=== PATIENT | female | born 1930 | race Caucasian/White ===

== ENCOUNTER 2018-09-25 21:15 | Inpatient (IN) | payer MEDICARE, MEDICAID ==
--- NOTE | 2018-09-25 22:00 | ED Physician Chart ---
ED Chief Complaint/HPI - Patient Information Date Seen:: 09/25/18 Time Seen:: 21:56 Chief Complaint:: abd pain History of Present Illness:: 88 yr old female here with no bm fir 3 days with costipation and no bm no vomiting or diiarhea no blood Allergies:: Allergies Allergy/AdvReac Type Severity Reaction Status Date / Time No Known Allergies Allergy Verified 09/25/18 21:31 Vitals:: Vital Signs - 8 hr 09/25/18 21:15 Temp 99.0 F HR 86 RR 18 BP 145/78 O2 Sat % 94 ED Review of Systems - Review of Systems General/Constitutional: No fever Skin: No skin lesions Head: No headache Eyes: No loss of vision ENT: No earache Neck: No neck pain Cardio Vascular: No palpitations Pulmonary: No SOB GI: No vomiting, Diarrhea, No diarrhea G/U: No dysuria 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 Is Septic Shock (SBP<90, OR Lactate>4 mmol\L) present?: No - <6hrs of presentation: Vital Signs: Vital Signs - 8 hr 09/25/18 21:15 Temp 99.0 F HR 86 RR 18 BP 145/78 O2 Sat % 94 ED Reassessment (Disposition) - Reassessment Reassessment:: constipation abd pain - Diagnosis Diagnosis:: as above - Patient Disposition Discharge/Transfer:: Home Transport Method:: ACLS
[2018-09-25 22:14] LABS: % BASOPHILS 0.1 % (0.0-2.0); % EOSINOPHILS 4.7 % (0.0-5.0); % MONOCYTES 4.6 % (2.0-10.0); % NEUTROPHILS 81.6 % (40.0-80.0); EOSINOPHILE ABSOLUTE 0.5 Th/cmm (0.1-0.4); HEMATOCRIT 42.2 % (41.0-60); HEMOGLOBIN 13.7 gm/dL (12-16); MEAN CELL VOLUME 86.3 fl (81-100); MEAN CORPUSCULAR HEMOGLOBIN 28.1 pg (27.0-31.0); MEAN CORPUSCULAR HGB CONC 32.6 pg (28.0-36.0); MONOCYTE ABSOLUTE 0.5 Th/cmm (0.3-1.0); PLATELET COUNT 177 Th/cmm (150-400); RED BLOOD COUNT 4.89 Mil/cmm (3.80-5.20); RED CELL DISTRIBUTION WIDTH 14.3 % (11.5-20.0)
[2018-09-25 22:30] LABS: ALB/GLOB RATIO 1.5 (1.0-1.8); ALBUMIN 4.5 gm/dL (3.7-5.3); ALKALINE PHOSPHATASE 73 U/L (34-104); ANION GAP 12.3 (7.0-16.0); BILIRUBIN,TOTAL 0.7 mg/dL (0.3-1.0); BUN - UREA NITROGEN 52 mg/dL (7-25); CALCIUM SERUM 10.5 mg/dL (8.6-10.3); CARBON DIOXIDE 30.4 mEq/L (21.0-31.0); CHLORIDE 101 mEq/L (98-107); CREATININE - SERUM 1.2 mg/dL (0.6-1.2); GLUCOSE 150 mg/dL (70-105); POTASSIUM SERUM 3.7 mEq/L (3.5-5.1); SGOT 22 U/L (13-39); SGPT/ALT 14 U/L (7-52); SODIUM SERUM 140 mEq/L (136-145); TOTAL PROTEIN,SERUM 7.6 gm/dL (6.0-8.3)
[2018-09-26 00:28] LABS: URINE SOURCE CLEAN C
[2018-09-26 00:30] LABS: URINE BILIRUBIN NEGATIVE (NEGATIVE); URINE BLOOD NEGATIVE (NEGATIVE); URINE GLUCOSE (UA) NEGATIVE (NEGATIVE); URINE KETONE NEGATIVE (NEGATIVE); URINE LEUKOCYTE ESTERASE NEGATIVE (NEGATIVE); URINE NITRATE NEGATIVE (NEGATIVE); URINE PH 7.5 (4.6 - 8.0); URINE PROTEIN 30 mg/dL (NEGATIVE)
[2018-09-26 00:31] LABS: URINE CLARITY CLEAR (CLEAR); URINE COLOR YELLOW
[2018-09-26 00:32] LABS: URINE MICROSCOPIC INDICATED? YES
[2018-09-26 00:33] LABS: URINE RBC 0-2 /hpf (0-5)
[2018-09-26 00:37] LABS: URINE BACTERIA NONE SEEN /hpf (NONE SEEN); URINE EPITHELIAL CELLS OCCASIONAL /lpf (FEW); URINE HYALINE CAST 0-2 /lpf (0-2); URINE WBC 0-2 /hpf (0-5)
[2018-09-26 00:38] LABS: URINE FINE GRANULAR CAST 0-2 /lpf (NONE SEEN)
[2018-09-26 00:48] VITALS: BP 145/77
[2018-09-26] MEDS: D5-0.45NS 1,000 ML IV SCH ×2 (01:45→15:18)
[2018-09-26] MEDS: INSULIN ASPART SLIDING SCALE 100 UNITS/ML UNIT SUBQ SCH ×4 (06:42→20:34)
--- NOTE | 2018-09-26 09:24 | Diagnostic Imaging Report ---
Exam: CT examination abdomen pelvis HISTORY: Abdominal distention Total DLP equals 628 CTDI equals 11.7 Findings: Multiple contiguous thin section of the abdomen pelvis obtained from lower thorax to pubic symphysis without the administration of oral or intravenous contrast material, no prior studies available comparison. The study demonstrates normal aeration of lung parenchyma at the bases The liver and spleen are intact. The kidneys demonstrate extensive vascular calcifications and obstructive uropathy bilaterally with hydronephrosis. Abdominal aorta diffusely calcified. Visualized pancreas is intact. The gallbladder is poorly seen, question of cholelithiasis. There is evidence for large amount of fecal content throughout the colon with marked distention of rectosigmoid junction and fecal impaction. Mild thickening of rectal wall appreciated. Marked distention urinary bladder and displacement anteriorly by rectum. Percutaneous gastrostomy tube in the stomach. Compression fractures of T9 and T12 vertebral bodies most likely old. IMPRESSION: Fecal impaction. Serial distention uterine bladder Bilateral hydronephrosis most likely due to distended urinary bladder. Extensive vascular calcifications Cholelithiasis Old compression fractures of T9 and T12 vertebral bodies.
[2018-09-26] MEDS: Lactulose 10 Gm/15 mL 30mL UDC GT SCH ×2 (10:39→16:56)
[2018-09-26] MEDS ORDERED: Fleet Enema 135 mL RC ONE (20:24)
[2018-09-26] MEDS ORDERED: GLUCAGON HCl 1 MG KIT IM PRN (21:00)
--- NOTE | 2018-09-26 23:11 | History & Physical ---
ADMIT DATE: CHIEF COMPLAINT: Severe abdominal distention. HISTORY OF PRESENT ILLNESS: The patient is an 88-year-old female with long history of hypertension, dementia, diabetes mellitus presented to the Emergency Room with abdominal distention. Initial workup significant for severe bowel obstruction secondary to stool impaction. The patient admitted to the hospital, started on IV fluid, lactulose. The patient is a poor historian. No nausea, no vomiting, no fever, no chills. Jordan catheter also ordered. PAST MEDICAL HISTORY: Significant for hypertension, diabetes mellitus, dementia, dysphagia. PAST SURGICAL HISTORY: G-tube placement. ALLERGIES: None. MEDICATIONS: Follow admission reconciliation. SOCIAL HISTORY: Nonsmoker, no alcohol, no drug. FAMILY HISTORY: Noncontributory. REVIEW OF SYSTEMS: RENAL SYSTEM: No history of chronic renal disorder. CARDIOVASCULAR SYSTEM: She has history of hypertension. ENDOCRINE SYSTEM: She has diabetes mellitus. GASTROINTESTINAL SYSTEM: She has severe constipation. NEUROLOGICAL SYSTEM: She has dementia. MUSCULOSKELETAL SYSTEM: She has osteoporosis. HEMATOLOGIC SYSTEM: No bleeding tendency. RESPIRATORY SYSTEM: No asthma. GENITOURINARY SYSTEM: No dysuria or hematuria. PHYSICAL EXAMINATION: GENERAL: She is awake, not coherent. VITAL SIGNS: Temperature 97.7, heart rate 79, blood pressure 133/80. HEENT: Normocephalic. Pupils reacting equal to light and accommodation. Sclerae clear. NECK: Supple. Negative for lymphadenopathy, JVD or bruit. CHEST: Air bilaterally were normal. No rhonchi or wheezing. HEART: S1, S2 normal. No gallop rhythm. ABDOMEN: Distended. Bowel sounds sluggish. EXTREMITIES: No edema. NEUROLOGIC: She is awake, alert, not fully oriented. LABORATORY DATA: Sodium 140, potassium 3.7, BUN 52, creatinine 0.2, glucose 150. White blood cell 11.0, hemoglobin 13.7, hematocrit 42.7, platelet 177. ASSESSMENT: 1. Acute bowel obstruction, significant for severe stool impaction. 2. Dehydration. 3. Hypertension. 4. Diabetes mellitus. 5. Compression fracture of the lumbar spine. PLAN: The patient admitted to the hospital under Dr. Gallardo's service, started on IV fluid. The patient resumed her G-tube feeding, sliding scale with regular insulin coverage q. 6 hours ordered. The patient started on lactulose 30 mL twice a day, Fleet Enema ordered. The patient is a full code. CBC, CMP for tomorrow ordered. JOB# [id number]
[2018-09-27] MEDS: D5-0.45NS 1,000 ML IV SCH ×3 (04:35→23:23)
[2018-09-27 05:20] LABS: HEMATOCRIT 36.1 % (41.0-60); HEMOGLOBIN 12.1 gm/dL (12-16); MEAN CORPUSCULAR HEMOGLOBIN 28.7 pg (27.0-31.0); MEAN CORPUSCULAR HGB CONC 33.4 pg (28.0-36.0); PLATELET COUNT 134 Th/cmm (150-400); RED CELL DISTRIBUTION WIDTH 14.5 % (11.5-20.0); WHITE BLOOD COUNT 11.4 Th/cmm (4.8-10.8)
[2018-09-27 05:34] LABS: ALB/GLOB RATIO 1.5 (1.0-1.8); ALBUMIN 3.7 gm/dL (3.7-5.3); ALKALINE PHOSPHATASE 52 U/L (34-104); ANION GAP 12.8 (7.0-16.0); BILIRUBIN,TOTAL 0.6 mg/dL (0.3-1.0); BUN - UREA NITROGEN 38 mg/dL (7-25); CALCIUM SERUM 9.2 mg/dL (8.6-10.3); CARBON DIOXIDE 27.4 mEq/L (21.0-31.0); CHLORIDE 107 mEq/L (98-107); GLUCOSE 234 mg/dL (70-105); MAGNESIUM 2.2 mg/dL (1.9-2.7); POTASSIUM SERUM 3.2 mEq/L (3.5-5.1); SGOT 24 U/L (13-39); SGPT/ALT 17 U/L (7-52); SODIUM SERUM 144 mEq/L (136-145); TOTAL PROTEIN,SERUM 6.1 gm/dL (6.0-8.3)
[2018-09-27 06:22] LABS: BAND NEUTROPHILE 0 % (0-10); NEUTROPHILS 88 % (40-80)
[2018-09-27 06:23] LABS: BASOPHIL 0 % (0-3); EOSINOPHIL 0 % (0-5); LYMPHOCYTE 6 % (20-50); MONOCYTE 6 % (2-10); PLATELET ESTIMATE DECREASED PLATELETS (NORMAL)
[2018-09-27] MEDS: INSULIN ASPART SLIDING SCALE 100 UNITS/ML UNIT SUBQ SCH ×2 (06:32→12:13)
[2018-09-27] MEDS ORDERED: Potassium Chloride 20 mEq ER Tab PO ONE (07:26)
[2018-09-27] MEDS: KCL 20mEq/100mL Premix 20 MEQ/100 ML PIGGYBACK IV SCH ×2 (08:41→10:37)
[2018-09-27] MEDS: Lactulose 10 Gm/15 mL 30mL UDC GT SCH ×2 (08:50→16:53)
[2018-09-27] MEDS: Multivitamin Tab GT SCH (08:51)
[2018-09-27] MEDS: Aspirin 81mg Chewable Tab GT SCH (08:51)
[2018-09-27] MEDS: Fleet Enema 135 mL RC SCH (08:52)
[2018-09-27] MEDS: INSULIN LISPRO SLIDING SCALE 100 UNITS/ML UNIT SUBQ SCH ×2 (17:07→21:13)
--- NOTE | 2018-09-27 18:02 | Internal Medicine Prog Note ---
Internal Medicine Subjective - Subjective Service Date: 09/27/18 Patient seen and examined:: with staff Patient is:: awake, in bed, confused Per staff patient has:: no adverse event Internal Medicine Objective - Results Result Diagrams: 09/27/18 04:50 09/27/18 13:00 Recent Labs: Laboratory Last Values WBC 11.4 Th/cmm (4.8-10.8) H 09/27/18 04:50 RBC 4.20 Mil/cmm (3.80-5.20) 09/27/18 04:50 Hgb 12.1 gm/dL (12-16) 09/27/18 04:50 Hct 36.1 % (41.0-60) L 09/27/18 04:50 MCV 86.0 fl (81-100) 09/27/18 04:50 MCH 28.7 pg (27.0-31.0) 09/27/18 04:50 MCHC Differential 33.4 pg (28.0-36.0) 09/27/18 04:50 RDW 14.5 % (11.5-20.0) 09/27/18 04:50 Plt Count 134 Th/cmm (150-400) L 09/27/18 04:50 MPV 11.0 fl 09/27/18 04:50 Add Manual Diff YES 09/27/18 04:50 Neutrophils % 81.6 % (40.0-80.0) H 09/25/18 22:02 Band Neutrophils % 0 % (0-10) 09/27/18 04:50 Lymphocytes % 9.0 % (20.0-50.0) L 09/25/18 22:02 Monocytes % 4.6 % (2.0-10.0) 09/25/18 22:02 Eosinophils % 4.7 % (0.0-5.0) 09/25/18 22:02 Basophils % 0.1 % (0.0-2.0) 09/25/18 22:02 Neutrophils (Manual) 88 % (40-80) H 09/27/18 04:50 Lymphocytes 6 % (20-50) L 09/27/18 04:50 Monocytes 6 % (2-10) 09/27/18 04:50 Eosinophils 0 % (0-5) 09/27/18 04:50 Basophils 0 % (0-3) 09/27/18 04:50 Platelet Estimate DECREASED PLATELETS (NORMAL) 09/27/18 04:50 Sodium 144 mEq/L (136-145) 09/27/18 04:50 Potassium 4.2 mEq/L (3.5-5.1) 09/27/18 13:00 Chloride 107 mEq/L (98-107) 09/27/18 04:50 Carbon Dioxide 27.4 mEq/L (21.0-31.0) 09/27/18 04:50 Anion Gap 12.8 (7.0-16.0) 09/27/18 04:50 BUN 38 mg/dL (7-25) H 09/27/18 04:50 Creatinine 1.0 mg/dL (0.6-1.2) 09/27/18 04:50 Est GFR ( Amer) TNP 09/27/18 04:50 Est GFR (Non-Af Amer) TNP 09/27/18 04:50 BUN/Creatinine Ratio 38.0 09/27/18 04:50 Glucose 234 mg/dL (70-105) H 09/27/18 04:50 POC Glucose 229 MG/DL (70 - 105) H 09/27/18 16:02 Calcium 9.2 mg/dL (8.6-10.3) 09/27/18 04:50 Magnesium 2.2 mg/dL (1.9-2.7) 09/27/18 04:50 Total Bilirubin 0.6 mg/dL (0.3-1.0) 09/27/18 04:50 AST 24 U/L (13-39) 09/27/18 04:50 ALT 17 U/L (7-52) 09/27/18 04:50 Alkaline Phosphatase 52 U/L (34-104) 09/27/18 04:50 Total Protein 6.1 gm/dL (6.0-8.3) 09/27/18 04:50 Albumin 3.7 gm/dL (3.7-5.3) 09/27/18 04:50 Globulin 2.4 gm/dL 09/27/18 04:50 Albumin/Globulin Ratio 1.5 (1.0-1.8) 09/27/18 04:50 Urine Source CLEAN C 09/26/18 00:00 Urine Color YELLOW 09/26/18 00:00 Urine Clarity CLEAR (CLEAR) 09/26/18 00:00 Urine pH 7.5 (4.6 - 8.0) 09/26/18 00:00 Ur Specific [place] 1.010 (1.005-1.030) 09/26/18 00:00 Urine Protein 30 mg/dL (NEGATIVE) H 09/26/18 00:00 Urine Glucose (UA) NEGATIVE mg/dL (NEGATIVE) 09/26/18 00:00 Urine Ketones NEGATIVE mg/dL (NEGATIVE) 09/26/18 00:00 Urine Blood NEGATIVE (NEGATIVE) 09/26/18 00:00 Urine Nitrate NEGATIVE (NEGATIVE) 09/26/18 00:00 Urine Bilirubin NEGATIVE (NEGATIVE) 09/26/18 00:00 Urine Urobilinogen 1.0 E.U./dL (0.2 - 1.0) 09/26/18 00:00 Ur Leukocyte Esterase NEGATIVE (NEGATIVE) 09/26/18 00:00 Urine RBC 0-2 /hpf (0-5) 09/26/18 00:00 Urine WBC 0-2 /hpf (0-5) 09/26/18 00:00 Ur Epithelial Cells OCCASIONAL /lpf (FEW) 09/26/18 00:00 Urine Bacteria NONE SEEN /hpf (NONE SEEN) 09/26/18 00:00 Hyaline Casts 0-2 /lpf (0-2) H 09/26/18 00:00 Fine Granular Casts 0-2 /lpf (NONE SEEN) H 09/26/18 00:00 - Physical Exam Vitals and I&O: Vital Signs Temp 98.7 F 09/27/18 16:58 Pulse 80 09/27/18 16:58 Resp 17 09/27/18 16:58 BP 156/80 09/27/18 16:58 Pulse Ox 97 09/27/18 16:58 Intake & Output 09/26/18 09/27/18 09/27/18 18:59 06:59 18:59 Intake Total 1000 1656.25 1035.417 Output Total 900 500 Balance 100 1156.25 1035.417 Weight (lbs) 56.245 kg 53.524 kg Intake: Intake, IV Amount 1000 996.25 1035.417 D5-0.45NS 1,000 ml @ 75 1000 996.25 938.75 mls/hr IV .[id number] [facility] Rx #:[id number] KCL 20mEq/100mL Premix 20 96.667 meq In 100 ml @ 50 mls/ hr IV Q2H [facility] Rx#: [id number] Tube Feeding 540 Other 120 Output: Urine 900 500 Other: # Bowel Movements 1 Weight Source Bedscale Bedscale Active Medications: Current Medications Aspirin (Aspirin Chewable) 81 mg GT DAILY [facility] Stop: 11/26/18 08:59 Last Admin: 09/27/18 08:51 Dose: 81 mg Cholecalciferol (Vitamin D3) 2,000 iu GT DAILY [facility] Stop: 11/26/18 08:59 Last Admin: 09/27/18 08:51 Dose: 2,000 iu Docusate Sodium (Colace) 250 mg PO BID [facility] Stop: 11/26/18 08:59 Last Admin: 09/27/18 16:54 Dose: 250 mg Donepezil HCl (Aricept) 10 mg GT HS [facility] Stop: 11/25/18 20:59 Last Admin: 09/26/18 20:41 Dose: 10 mg Glucagon (Glucagen) 1 mg IM UD PRN PRN Reason: HYPOGLYCEMIA Stop: 11/25/18 20:59 Hydralazine HCl (Apresoline) 25 mg GT Q8HR [facility] Stop: 11/25/18 20:59 Last Admin: 09/27/18 12:33 Dose: 25 mg Dextrose/Sodium Chloride (D5-0.45ns) 1,000 mls @ 75 mls/hr IV .[id number] [facility] Stop: 11/25/18 00:40 Last Admin: 09/27/18 17:06 Dose: 75 mls/hr Insulin Human Lispro (Humalog Insulin Sliding Scale) 0 units SUBQ ACHS [facility]; Protocol Stop: 11/25/18 07:29 Last Admin: 09/27/18 17:07 Dose: 5 units Lactulose (Cephulac) 30 gm GT BID [facility] Stop: 11/25/18 08:59 Last Admin: 09/27/18 16:53 Dose: 30 gm Lisinopril (Zestril) 20 mg GT BID [facility] Stop: 11/26/18 08:59 Last Admin: 09/27/18 16:54 Dose: 20 mg Metformin HCl (Glucophage) 500 mg GT DAILY [facility] Stop: 11/26/18 08:59 Last Admin: 09/27/18 08:51 Dose: 500 mg Multivitamins/Vitamin C (Theragran) 1 tab GT DAILY [facility] Stop: 11/26/18 08:59 Last Admin: 09/27/18 08:51 Dose: 1 tab Mupirocin (Bactroban Oint) 1 appl NS BID [facility] Stop: 10/02/18 09:01 Last Admin: 09/27/18 16:53 Dose: 1 appl Sodium Phosphate (Fleet Enema) 135 ml RC DAILY [facility] Stop: 11/26/18 08:59 Last Admin: 09/27/18 08:52 Dose: 135 ml General: demented HEENT: NC/AT, PERRLA, EOMI, anicteric sclerae, throat clear Neck: Supple, No JVD, No thyromegaly, + JVD Lungs: CTAB Cardiovascular: RRR, Normal S1, Normal S2, without murmur Abdomen: soft, non-tender, distended Extremities: clear Neurological: no change Internal Medicine Assmt/Plan - Assessment Assessment: 1.ACUTE BOWEL OBSTRACTION. 2.SEVER CONSTIPATION. 3.DEMENTIA. 4.DM - Plan Plan: CBC AND CMP IN AM Nutritional Asmnt/Malnutr-PDOC - Dietary Evaluation Malnutrition Findings (Please click <Entered> for more info): Nutritional Asmnt/Malnutrition Start: 09/27/18 15: 55 Text: Status: Complete Freq: Protocol: Document 09/27/18 15:55 [email or web address] (Rec: 09/27/18 16:03 [email or web address]) Nutritional Asmnt/Malnutrition Patient General Information Nutritional Screening High Risk Diagnosis bowel obstruction with fecal impaction Pertinent Medical Hx/Surgical Hx DM, HTN, dementia Subjective Information Pt oriented to name, states no N/V however unable to obtain further hx as pt closed eyes and no longer responded to prompts. Glucerna 1.2 held at visit, order x 20 hours. RN reports tolerating TF without GRV. D5 1/2 NS @ 75 ml/hr upon visit. Current Diet Order/ Nutrition Support Glucerna 1.2 @ 60ml/hr x 20 hr = 1200ml, 1440kcal, 72g protein, 966ml H2O Patient / S.O Not Indicated Pertinent Medications vitamin D3, glucagon, metformin, Novolog, lactulose, Theragran, enema Pertinent Labs (09/27) K 3.2, BUN 38, Glu 234, BG POC 107-213 Nutritional Hx/Data Height 1.52 m Height (Calculated Centimeters) 152.4 Current Weight (lbs) 53.524 kg Weight (Calculated Kilograms) 53.5 Weight (Calculated Grams) 00663.9 [place] Body Weight 100 lb Body Mass Index (BMI) 23.0 Weight Status Approriate GI Symptoms GI Symptoms None Last BM 09/27 Difficult in: Swallowing Skin Integrity/Comment: intact skinCarlos 13 Estimated Nutritional Goals BEE in Kcals: Using Current wt Calories/Kcals/Kg 25-30 Kcals Calculated 7089-4889 Protein: Using Current wt Protein g/k-1.2 Protein Calculated 64-65 Fluid: ml 2696-3870 Nutritional Problem 1. Problem Problem Altered nutrition related labs Etiology DM Signs/Symptoms: Glu 234, BG POC 107-213 Intervention/Recommendation Comments 1. Continue Glucerna 1.2 @ 60 ml/hr x 20 [id number], 1440kcal, 72g protein, 966ml free water (meets 100% kcal, 110% protein needs) 2. Consider 100ml Q6h water flush 3. Monitor TF rate, tolerance, wt, skin integrity and labs Expected Outcomes/Goals Expected Outcomes/Goals 1. Pt to meet at least 90% of nutritional needs via nutrition support with tolerance 2. Wt stability, skin to remain intact, labs to approach WNL. Shamika Pichardo RD
[2018-09-28] MEDS: INSULIN LISPRO SLIDING SCALE 100 UNITS/ML UNIT SUBQ SCH ×4 (06:32→22:32)
[2018-09-28 07:11] LABS: A1C 5.9 % (4.8-5.6)
[2018-09-28 07:17] LABS: ALB/GLOB RATIO 1.4 (1.0-1.8); ALBUMIN 3.3 gm/dL (3.7-5.3); ALKALINE PHOSPHATASE 50 U/L (34-104); ANION GAP 10.9 (7.0-16.0); BILIRUBIN,TOTAL 0.6 mg/dL (0.3-1.0); BUN - UREA NITROGEN 32 mg/dL (7-25); CALCIUM SERUM 8.7 mg/dL (8.6-10.3); CARBON DIOXIDE 28.6 mEq/L (21.0-31.0); CHLORIDE 107 mEq/L (98-107); CREATININE - SERUM 1.1 mg/dL (0.6-1.2); GLUCOSE 182 mg/dL (70-105); POTASSIUM SERUM 3.5 mEq/L (3.5-5.1); SGOT 21 U/L (13-39); SGPT/ALT 18 U/L (7-52); SODIUM SERUM 143 mEq/L (136-145); TOTAL PROTEIN,SERUM 5.7 gm/dL (6.0-8.3)
[2018-09-28 07:40] LABS: HEMATOCRIT 33.8 % (41.0-60); HEMOGLOBIN 11.1 gm/dL (12-16); MEAN CELL VOLUME 86.9 fl (81-100); MEAN CORPUSCULAR HEMOGLOBIN 28.4 pg (27.0-31.0); MEAN CORPUSCULAR HGB CONC 32.7 pg (28.0-36.0); PLATELET COUNT 128 Th/cmm (150-400); RED BLOOD COUNT 3.89 Mil/cmm (3.80-5.20); RED CELL DISTRIBUTION WIDTH 14.5 % (11.5-20.0); WHITE BLOOD COUNT 11.6 Th/cmm (4.8-10.8)
[2018-09-28] MEDS: Lactulose 10 Gm/15 mL 30mL UDC GT SCH ×2 (08:33→17:44)
[2018-09-28] MEDS: Multivitamin Tab GT SCH (08:34)
[2018-09-28] MEDS: Aspirin 81mg Chewable Tab GT SCH (08:34)
[2018-09-28] MEDS: Fleet Enema 135 mL RC SCH (08:36)
[2018-09-28 08:48] LABS: BAND NEUTROPHILE 0 % (0-10); BASOPHIL 0 % (0-3); EOSINOPHIL 1 % (0-5); LYMPHOCYTE 10 % (20-50); MONOCYTE 7 % (2-10); NEUTROPHILS 82 % (40-80); PLATELET ESTIMATE DECREASED PLATELETS (NORMAL)
[2018-09-28] MEDS: D5-0.45NS 1,000 ML IV SCH (12:07)
--- NOTE | 2018-09-28 19:42 | General Progress Note ---
Subjective - Review of Systems Service Date: 09/28/18 Subjective: resting comfortably in bed no distress Objective - Results Result Diagrams: 09/28/18 05:50 09/28/18 05:50 Recent Labs: Laboratory Last Values WBC 11.6 Th/cmm (4.8-10.8) H 09/28/18 05:50 RBC 3.89 Mil/cmm (3.80-5.20) 09/28/18 05:50 Hgb 11.1 gm/dL (12-16) L 09/28/18 05:50 Hct 33.8 % (41.0-60) L 09/28/18 05:50 MCV 86.9 fl (81-100) 09/28/18 05:50 MCH 28.4 pg (27.0-31.0) 09/28/18 05:50 MCHC Differential 32.7 pg (28.0-36.0) 09/28/18 05:50 RDW 14.5 % (11.5-20.0) 09/28/18 05:50 Plt Count 128 Th/cmm (150-400) L 09/28/18 05:50 MPV 11.4 fl 09/28/18 05:50 Add Manual Diff YES 09/28/18 05:50 Neutrophils % 81.6 % (40.0-80.0) H 09/25/18 22:02 Band Neutrophils % 0 % (0-10) 09/28/18 05:50 Lymphocytes % 9.0 % (20.0-50.0) L 09/25/18 22:02 Monocytes % 4.6 % (2.0-10.0) 09/25/18 22:02 Eosinophils % 4.7 % (0.0-5.0) 09/25/18 22:02 Basophils % 0.1 % (0.0-2.0) 09/25/18 22:02 Neutrophils (Manual) 82 % (40-80) H 09/28/18 05:50 Lymphocytes 10 % (20-50) L 09/28/18 05:50 Monocytes 7 % (2-10) 09/28/18 05:50 Eosinophils 1 % (0-5) 09/28/18 05:50 Basophils 0 % (0-3) 09/28/18 05:50 Platelet Estimate DECREASED PLATELETS (NORMAL) 09/28/18 05:50 Sodium 143 mEq/L (136-145) 09/28/18 05:50 Potassium 3.5 mEq/L (3.5-5.1) 09/28/18 05:50 Chloride 107 mEq/L (98-107) 09/28/18 05:50 Carbon Dioxide 28.6 mEq/L (21.0-31.0) 09/28/18 05:50 Anion Gap 10.9 (7.0-16.0) 09/28/18 05:50 BUN 32 mg/dL (7-25) H 09/28/18 05:50 Creatinine 1.1 mg/dL (0.6-1.2) 09/28/18 05:50 Est GFR ( Amer) TNP 09/28/18 05:50 Est GFR (Non-Af Amer) TNP 09/28/18 05:50 BUN/Creatinine Ratio 29.1 09/28/18 05:50 Glucose 182 mg/dL (70-105) H 09/28/18 05:50 POC Glucose 157 MG/DL (70 - 105) H 09/28/18 17:33 Calcium 8.7 mg/dL (8.6-10.3) 09/28/18 05:50 Magnesium 2.2 mg/dL (1.9-2.7) 09/27/18 04:50 Total Bilirubin 0.6 mg/dL (0.3-1.0) 09/28/18 05:50 AST 21 U/L (13-39) 09/28/18 05:50 ALT 18 U/L (7-52) 09/28/18 05:50 Alkaline Phosphatase 50 U/L (34-104) 09/28/18 05:50 Total Protein 5.7 gm/dL (6.0-8.3) L 09/28/18 05:50 Albumin 3.3 gm/dL (3.7-5.3) L 09/28/18 05:50 Globulin 2.4 gm/dL 09/28/18 05:50 Albumin/Globulin Ratio 1.4 (1.0-1.8) 09/28/18 05:50 Urine Source CLEAN C 09/26/18 00:00 Urine Color YELLOW 09/26/18 00:00 Urine Clarity CLEAR (CLEAR) 09/26/18 00:00 Urine pH 7.5 (4.6 - 8.0) 09/26/18 00:00 Ur Specific [place] 1.010 (1.005-1.030) 09/26/18 00:00 Urine Protein 30 mg/dL (NEGATIVE) H 09/26/18 00:00 Urine Glucose (UA) NEGATIVE mg/dL (NEGATIVE) 09/26/18 00:00 Urine Ketones NEGATIVE mg/dL (NEGATIVE) 09/26/18 00:00 Urine Blood NEGATIVE (NEGATIVE) 09/26/18 00:00 Urine Nitrate NEGATIVE (NEGATIVE) 09/26/18 00:00 Urine Bilirubin NEGATIVE (NEGATIVE) 09/26/18 00:00 Urine Urobilinogen 1.0 E.U./dL (0.2 - 1.0) 09/26/18 00:00 Ur Leukocyte Esterase NEGATIVE (NEGATIVE) 09/26/18 00:00 Urine RBC 0-2 /hpf (0-5) 09/26/18 00:00 Urine WBC 0-2 /hpf (0-5) 09/26/18 00:00 Ur Epithelial Cells OCCASIONAL /lpf (FEW) 09/26/18 00:00 Urine Bacteria NONE SEEN /hpf (NONE SEEN) 09/26/18 00:00 Hyaline Casts 0-2 /lpf (0-2) H 09/26/18 00:00 Fine Granular Casts 0-2 /lpf (NONE SEEN) H 09/26/18 00:00 - Physical Exam Vitals and I&O: Vital Signs Temp 97.7 F 09/28/18 16:00 Pulse 75 09/28/18 17:45 Resp 18 09/28/18 16:00 BP 128/59 09/28/18 17:45 Pulse Ox 100 09/28/18 16:00 Intake & Output 09/28/18 09/28/18 09/29/18 06:59 18:59 06:59 Intake Total 471.25 955 Output Total 750 Balance -278.75 955 Weight (lbs) 53.524 kg Intake: Intake, IV Amount 471.25 955 D5-0.45NS 1,000 ml @ 75 471.25 955 mls/hr IV .[id number] [facility] Rx #:[id number] Output: Urine 750 Other: # Bowel Movements 3 Stool Characteristics Soft Hard Brown Weight Source Bedscale Active Medications: Current Medications Acetaminophen (Tylenol 650mg/20.3ml Suspension) 650 mg GT Q6H PRN PRN Reason: Fever > 101 Stop: 11/27/18 19:38 Aspirin (Aspirin Chewable) 81 mg GT DAILY [facility] Stop: 11/26/18 08:59 Last Admin: 09/28/18 08:34 Dose: 81 mg Cholecalciferol (Vitamin D3) 2,000 iu GT DAILY [facility] Stop: 11/26/18 08:59 Last Admin: 09/28/18 08:34 Dose: 2,000 iu Docusate Sodium (Colace) 250 mg PO BID [facility] Stop: 11/26/18 08:59 Last Admin: 09/28/18 17:45 Dose: 250 mg Donepezil HCl (Aricept) 10 mg GT HS [facility] Stop: 11/25/18 20:59 Last Admin: 09/27/18 20:41 Dose: 10 mg Glucagon (Glucagen) 1 mg IM UD PRN PRN Reason: HYPOGLYCEMIA Stop: 11/25/18 20:59 Hydralazine HCl (Apresoline) 25 mg GT Q8HR [facility] Stop: 11/25/18 20:59 Last Admin: 09/28/18 12:59 Dose: 25 mg Dextrose/Sodium Chloride (D5-0.45ns) 1,000 mls @ 75 mls/hr IV .[id number] [facility] Stop: 11/25/18 00:40 Last Admin: 09/28/18 12:07 Dose: 75 mls/hr Piperacillin Sod/Tazobactam (Sod 3.375 gm/ Sodium Chloride) 50 mls @ 100 mls/ hr IV Q6HR [facility] Stop: 11/27/18 19:44 Insulin Human Lispro (Humalog Insulin Sliding Scale) 0 units SUBQ ACHS [facility]; Protocol Stop: 11/25/18 07:29 Last Admin: 09/28/18 17:44 Dose: 3 units Lactulose (Cephulac) 30 gm GT BID [facility] Stop: 11/25/18 08:59 Last Admin: 09/28/18 17:44 Dose: 30 gm Lisinopril (Zestril) 20 mg GT BID [facility] Stop: 11/26/18 08:59 Last Admin: 09/28/18 17:45 Dose: 20 mg Metformin HCl (Glucophage) 500 mg GT DAILY [facility] Stop: 11/26/18 08:59 Last Admin: 09/28/18 08:34 Dose: 500 mg Multivitamins/Vitamin C (Theragran) 1 tab GT DAILY [facility] Stop: 11/26/18 08:59 Last Admin: 09/28/18 08:34 Dose: 1 tab Mupirocin (Bactroban Oint) 1 appl NS BID [facility] Stop: 10/02/18 09:01 Last Admin: 09/28/18 17:45 Dose: 1 appl Sodium Phosphate (Fleet Enema) 135 ml RC DAILY [facility] Stop: 11/26/18 08:59 Last Admin: 09/28/18 08:36 Dose: 135 ml General: No acute distress HEENT: Atraumatic, PERRLA Neck: Supple, JVD Cardiovascular: Regular rate, Normal S1, Normal S2 Lungs: Clear to auscultation Abdomen: Bowel sounds, Soft Assessment/Plan - Assessment Assessment: 1.ACUTE BOWEL OBSTRACTION. 2.SEVERE CONSTIPATION. 3.DEMENTIA. 4.DM - Plan Plan: continue current treatment empirically start zosyn cxr monitor fever and WBC Nutritional Asmnt/Malnutr-PDOC - Dietary Evaluation Malnutrition Findings (Please click <Entered> for more info): Nutritional Asmnt/Malnutrition Start: 09/27/18 15: 55 Text: Status: Complete Freq: Protocol: Document 09/27/18 15:55 [email or web address] (Rec: 09/27/18 16:03 [email or web address]) Nutritional Asmnt/Malnutrition Patient General Information Nutritional Screening High Risk Diagnosis bowel obstruction with fecal impaction Pertinent Medical Hx/Surgical Hx DM, HTN, dementia Subjective Information Pt oriented to name, states no N/V however unable to obtain further hx as pt closed eyes and no longer responded to prompts. Glucerna 1.2 held at visit, order x 20 hours. RN reports tolerating TF without GRV. D5 1/2 NS @ 75 ml/hr upon visit. Current Diet Order/ Nutrition Support Glucerna 1.2 @ 60ml/hr x 20 hr = 1200ml, 1440kcal, 72g protein, 966ml H2O Patient / S.O Not Indicated Pertinent Medications vitamin D3, glucagon, metformin, Novolog, lactulose, Theragran, enema Pertinent Labs (09/27) K 3.2, BUN 38, Glu 234, BG POC 107-213 Nutritional Hx/Data Height 1.52 m Height (Calculated Centimeters) 152.4 Current Weight (lbs) 53.524 kg Weight (Calculated Kilograms) 53.5 Weight (Calculated Grams) 36572.9 [place] Body Weight 100 lb Body Mass Index (BMI) 23.0 Weight Status Approriate GI Symptoms GI Symptoms None Last BM 6/7 Difficult in: Swallowing Skin Integrity/Comment: intact skinCarlos Estimated Nutritional Goals BEE in Kcals: Using Current wt Calories/Kcals/Kg 25-30 Kcals Calculated 8469-3621 Protein: Using Current wt Protein g/k-1.2 Protein Calculated 64-65 Fluid: ml 2996-7327 Nutritional Problem 1. Problem Problem Altered nutrition related labs Etiology DM Signs/Symptoms: Glu 234, BG POC 107-213 Intervention/Recommendation Comments 1. Continue Glucerna 1.2 @ 60 ml/hr x 20 [id number], 1440kcal, 72g protein, 966ml free water (meets 100% kcal, 110% protein needs) 2. Consider 100ml Q6h water flush 3. Monitor TF rate, tolerance, wt, skin integrity and labs Expected Outcomes/Goals Expected Outcomes/Goals 1. Pt to meet at least 90% of nutritional needs via nutrition support with tolerance 2. Wt stability, skin to remain intact, labs to approach WNL. Shamika Pichardo RD
[2018-09-28] MEDS ORDERED: Piperacillin Sodium/Tazobact 2.25 gm Vial IV ONE (19:56)
[2018-09-29] MEDS ORDERED: Piperacillin Sodium/Tazobact 2.25 gm Vial IV ONE (03:02)
[2018-09-29] MEDS: D5-0.45NS 1,000 ML IV SCH ×2 (04:41→14:50)
[2018-09-29] MEDS: INSULIN LISPRO SLIDING SCALE 100 UNITS/ML UNIT SUBQ SCH ×4 (06:32→20:00)
[2018-09-29 08:17] LABS: HEMATOCRIT 33.8 % (41.0-60); MEAN CORPUSCULAR HEMOGLOBIN 28.3 pg (27.0-31.0); MEAN CORPUSCULAR HGB CONC 32.5 pg (28.0-36.0); PLATELET COUNT 113 Th/cmm (150-400); RED BLOOD COUNT 3.89 Mil/cmm (3.80-5.20); RED CELL DISTRIBUTION WIDTH 14.4 % (11.5-20.0)
[2018-09-29 09:21] LABS: BAND NEUTROPHILE 0 % (0-10); BASOPHIL 0 % (0-3); EOSINOPHIL 8 % (0-5); LYMPHOCYTE 15 % (20-50); MONOCYTE 3 % (2-10); NEUTROPHILS 74 % (40-80); PLATELET ESTIMATE DECREASED PLATELETS (NORMAL)
[2018-09-29] MEDS: Multivitamin Tab GT SCH (09:37)
[2018-09-29] MEDS: Aspirin 81mg Chewable Tab GT SCH (09:37)
--- NOTE | 2018-09-29 09:53 | Diagnostic Imaging Report ---
CHEST X-RAY: AP view INDICATION: Fever, shortness of breath COMPARISON: None FINDINGS: Chronic lung changes are noted. There is mild elevation of the right hemidiaphragm. There is no focal consolidation or pleural effusions The heart is normal in size. Atherosclerosis is noted. Degenerative changes of the spine are noted with scoliosis. IMPRESSION: Chronic lung changes with no focal consolidation identified. Atherosclerotic vascular disease.
[2018-09-29] MEDS: Lactulose 10 Gm/15 mL 30mL UDC GT SCH ×2 (10:28→16:23)
[2018-09-29] MEDS: Fleet Enema 135 mL RC SCH (10:28)
--- NOTE | 2018-09-29 17:59 | General Progress Note ---
Subjective - Review of Systems Service Date: 09/29/18 Subjective: resting comfortably in bed no distress Objective - Results Result Diagrams: 09/29/18 06:41 09/28/18 05:50 Recent Labs: Laboratory Last Values WBC 8.0 Th/cmm (4.8-10.8) 09/29/18 06:41 RBC 3.89 Mil/cmm (3.80-5.20) 09/29/18 06:41 Hgb 11.0 gm/dL (12-16) L 09/29/18 06:41 Hct 33.8 % (41.0-60) L 09/29/18 06:41 MCV 87.0 fl (81-100) 09/29/18 06:41 MCH 28.3 pg (27.0-31.0) 09/29/18 06:41 MCHC Differential 32.5 pg (28.0-36.0) 09/29/18 06:41 RDW 14.4 % (11.5-20.0) 09/29/18 06:41 Plt Count 113 Th/cmm (150-400) L 09/29/18 06:41 MPV 11.8 fl 09/29/18 06:41 Add Manual Diff YES 09/29/18 06:41 Neutrophils % 81.6 % (40.0-80.0) H 09/25/18 22:02 Band Neutrophils % 0 % (0-10) 09/29/18 06:41 Lymphocytes % 9.0 % (20.0-50.0) L 09/25/18 22:02 Monocytes % 4.6 % (2.0-10.0) 09/25/18 22:02 Eosinophils % 4.7 % (0.0-5.0) 09/25/18 22:02 Basophils % 0.1 % (0.0-2.0) 09/25/18 22:02 Neutrophils (Manual) 74 % (40-80) 09/29/18 06:41 Lymphocytes 15 % (20-50) L 09/29/18 06:41 Monocytes 3 % (2-10) 09/29/18 06:41 Eosinophils 8 % (0-5) H 09/29/18 06:41 Basophils 0 % (0-3) 09/29/18 06:41 Platelet Estimate DECREASED PLATELETS (NORMAL) 09/29/18 06:41 Sodium 143 mEq/L (136-145) 09/28/18 05:50 Potassium 3.5 mEq/L (3.5-5.1) 09/28/18 05:50 Chloride 107 mEq/L (98-107) 09/28/18 05:50 Carbon Dioxide 28.6 mEq/L (21.0-31.0) 09/28/18 05:50 Anion Gap 10.9 (7.0-16.0) 09/28/18 05:50 BUN 32 mg/dL (7-25) H 09/28/18 05:50 Creatinine 1.1 mg/dL (0.6-1.2) 09/28/18 05:50 Est GFR ( Amer) TNP 09/28/18 05:50 Est GFR (Non-Af Amer) TNP 09/28/18 05:50 BUN/Creatinine Ratio 29.1 09/28/18 05:50 Glucose 182 mg/dL (70-105) H 09/28/18 05:50 POC Glucose 126 MG/DL (70 - 105) H 09/29/18 16:33 Calcium 8.7 mg/dL (8.6-10.3) 09/28/18 05:50 Magnesium 2.2 mg/dL (1.9-2.7) 09/27/18 04:50 Total Bilirubin 0.6 mg/dL (0.3-1.0) 09/28/18 05:50 AST 21 U/L (13-39) 09/28/18 05:50 ALT 18 U/L (7-52) 09/28/18 05:50 Alkaline Phosphatase 50 U/L (34-104) 09/28/18 05:50 Total Protein 5.7 gm/dL (6.0-8.3) L 09/28/18 05:50 Albumin 3.3 gm/dL (3.7-5.3) L 09/28/18 05:50 Globulin 2.4 gm/dL 09/28/18 05:50 Albumin/Globulin Ratio 1.4 (1.0-1.8) 09/28/18 05:50 Urine Source CLEAN C 09/26/18 00:00 Urine Color YELLOW 09/26/18 00:00 Urine Clarity CLEAR (CLEAR) 09/26/18 00:00 Urine pH 7.5 (4.6 - 8.0) 09/26/18 00:00 Ur Specific [place] 1.010 (1.005-1.030) 09/26/18 00:00 Urine Protein 30 mg/dL (NEGATIVE) H 09/26/18 00:00 Urine Glucose (UA) NEGATIVE mg/dL (NEGATIVE) 09/26/18 00:00 Urine Ketones NEGATIVE mg/dL (NEGATIVE) 09/26/18 00:00 Urine Blood NEGATIVE (NEGATIVE) 09/26/18 00:00 Urine Nitrate NEGATIVE (NEGATIVE) 09/26/18 00:00 Urine Bilirubin NEGATIVE (NEGATIVE) 09/26/18 00:00 Urine Urobilinogen 1.0 E.U./dL (0.2 - 1.0) 09/26/18 00:00 Ur Leukocyte Esterase NEGATIVE (NEGATIVE) 09/26/18 00:00 Urine RBC 0-2 /hpf (0-5) 09/26/18 00:00 Urine WBC 0-2 /hpf (0-5) 09/26/18 00:00 Ur Epithelial Cells OCCASIONAL /lpf (FEW) 09/26/18 00:00 Urine Bacteria NONE SEEN /hpf (NONE SEEN) 09/26/18 00:00 Hyaline Casts 0-2 /lpf (0-2) H 09/26/18 00:00 Fine Granular Casts 0-2 /lpf (NONE SEEN) H 09/26/18 00:00 - Physical Exam Vitals and I&O: Vital Signs Temp 97.8 F 09/29/18 15:33 Pulse 64 09/29/18 16:24 Resp 18 09/29/18 15:33 BP 120/65 09/29/18 16:24 Pulse Ox 99 09/29/18 15:33 Intake & Output 09/28/18 09/29/18 09/29/18 18:59 06:59 18:59 Intake Total 955 1100 1411.25 Output Total 375 Balance 955 1100 1036.25 Weight (lbs) 51.891 kg Intake: Intake, IV Amount 955 1100 811.25 D5-0.45NS 1,000 ml @ 75 955 1000 761.25 mls/hr IV .[id number] [facility] Rx #:[id number] Piperacillin Sodium/ 50 50 Tazobact 2.25 gm In Sodium Chloride 0.9% 50 ml @ 100 mls/hr IV Q6H [facility] Rx#:[id number] Piperacillin Sodium/ 50 Tazobact 2.25 gm In Sodium Chloride 0.9% 50 ml @ 100 mls/hr IV Q6HR [facility] Rx#:[id number] Tube Feeding 600 Output: Urine 375 Other: # Bowel Movements 4 Stool Characteristics Soft Soft Soft Hard Hard Brown Brown Brown Weight Source Bedscale Active Medications: Current Medications Acetaminophen (Tylenol 650mg/20.3ml Suspension) 650 mg GT Q6H PRN PRN Reason: Fever > 101 Stop: 11/27/18 19:38 Last Admin: 09/29/18 06:14 Dose: 650 mg Aspirin (Aspirin Chewable) 81 mg GT DAILY [facility] Stop: 11/26/18 08:59 Last Admin: 09/29/18 09:37 Dose: 81 mg Cholecalciferol (Vitamin D3) 2,000 iu GT DAILY [facility] Stop: 11/26/18 08:59 Last Admin: 09/29/18 09:37 Dose: 2,000 iu Docusate Sodium (Colace) 250 mg PO BID [facility] Stop: 11/26/18 08:59 Last Admin: 09/29/18 16:23 Dose: Not Given Donepezil HCl (Aricept) 10 mg GT HS [facility] Stop: 11/25/18 20:59 Last Admin: 09/28/18 20:40 Dose: 10 mg Glucagon (Glucagen) 1 mg IM UD PRN PRN Reason: HYPOGLYCEMIA Stop: 11/25/18 20:59 Hydralazine HCl (Apresoline) 25 mg GT Q8HR [facility] Stop: 11/25/18 20:59 Last Admin: 09/29/18 14:55 Dose: 25 mg Dextrose/Sodium Chloride (D5-0.45ns) 1,000 mls @ 75 mls/hr IV .[id number] [facility] Stop: 11/25/18 00:40 Last Admin: 09/29/18 14:50 Dose: 75 mls/hr Piperacillin Sod/Tazobactam (Sod 2.25 gm/ Sodium Chloride) 50 mls @ 100 mls/hr IV Q6H [facility] Stop: 11/27/18 19:59 Last Admin: 09/29/18 16:25 Dose: 100 mls/hr Insulin Human Lispro (Humalog Insulin Sliding Scale) 0 units SUBQ ACHS [facility]; Protocol Stop: 11/25/18 07:29 Last Admin: 09/29/18 16:34 Dose: Not Given Lactulose (Cephulac) 30 gm GT BID [facility] Stop: 11/25/18 08:59 Last Admin: 09/29/18 16:23 Dose: Not Given Lisinopril (Zestril) 20 mg GT BID [facility] Stop: 11/26/18 08:59 Last Admin: 09/29/18 16:24 Dose: 20 mg Metformin HCl (Glucophage) 500 mg GT DAILY [facility] Stop: 11/26/18 08:59 Last Admin: 09/29/18 09:37 Dose: 500 mg Multivitamins/Vitamin C (Theragran) 1 tab GT DAILY [facility] Stop: 11/26/18 08:59 Last Admin: 09/29/18 09:37 Dose: 1 tab Mupirocin (Bactroban Oint) 1 appl NS BID [facility] Stop: 10/02/18 09:01 Last Admin: 09/29/18 14:50 Dose: 1 appl Sodium Phosphate (Fleet Enema) 135 ml RC DAILY [facility] Stop: 11/26/18 08:59 Last Admin: 09/29/18 10:28 Dose: Not Given General: No acute distress HEENT: Atraumatic, PERRLA Neck: Supple, JVD Cardiovascular: Regular rate, Normal S1, Normal S2 Lungs: Clear to auscultation Abdomen: Bowel sounds, Soft Assessment/Plan - Assessment Assessment: 1.ACUTE BOWEL OBSTRACTION. 2.SEVERE CONSTIPATION. 3.DEMENTIA. 4.DM - Plan Plan: continue current treatment empirically start zosyn cxr monitor fever and WBC Nutritional Asmnt/Malnutr-PDOC - Dietary Evaluation Malnutrition Findings (Please click <Entered> for more info): Nutritional Asmnt/Malnutrition Start: 09/27/18 15: 55 Text: Status: Complete Freq: Protocol: Document 09/27/18 15:55 [email or web address] (Rec: 09/27/18 16:03 [email or web address]) Nutritional Asmnt/Malnutrition Patient General Information Nutritional Screening High Risk Diagnosis bowel obstruction with fecal impaction Pertinent Medical Hx/Surgical Hx DM, HTN, dementia Subjective Information Pt oriented to name, states no N/V however unable to obtain further hx as pt closed eyes and no longer responded to prompts. Glucerna 1.2 held at visit, order x 20 hours. RN reports tolerating TF without GRV. D5 1/2 NS @ 75 ml/hr upon visit. Current Diet Order/ Nutrition Support Glucerna 1.2 @ 60ml/hr x 20 hr = 1200ml, 1440kcal, 72g protein, 966ml H2O Patient / S.O Not Indicated Pertinent Medications vitamin D3, glucagon, metformin, Novolog, lactulose, Theragran, enema Pertinent Labs (09/27) K 3.2, BUN 38, Glu 234, BG POC 107-213 Nutritional Hx/Data Height 1.52 m Height (Calculated Centimeters) 152.4 Current Weight (lbs) 53.524 kg Weight (Calculated Kilograms) 53.5 Weight (Calculated Grams) 30786.9 [place] Body Weight 100 lb Body Mass Index (BMI) 23.0 Weight Status Approriate GI Symptoms GI Symptoms None Last BM 09/27 Difficult in: Swallowing Skin Integrity/Comment: intact skinCarlos Estimated Nutritional Goals BEE in Kcals: Using Current wt Calories/Kcals/Kg 25-30 Kcals Calculated 3443-4007 Protein: Using Current wt Protein g/k-1.2 Protein Calculated 64-65 Fluid: ml 6715-7819 Nutritional Problem 1. Problem Problem Altered nutrition related labs Etiology DM Signs/Symptoms: Glu 234, BG POC 107-213 Intervention/Recommendation Comments 1. Continue Glucerna 1.2 @ 60 ml/hr x 20 hppss=2553sc, 1440kcal, 72g protein, 966ml free water (meets 100% kcal, 110% protein needs) 2. Consider 100ml Q6h water flush 3. Monitor TF rate, tolerance, wt, skin integrity and labs Expected Outcomes/Goals Expected Outcomes/Goals 1. Pt to meet at least 90% of nutritional needs via nutrition support with tolerance 2. Wt stability, skin to remain intact, labs to approach WNL. Shamika Pichardo RD
[2018-09-30] MEDS: INSULIN LISPRO SLIDING SCALE 100 UNITS/ML UNIT SUBQ SCH ×4 (06:30→23:13)
[2018-09-30] MEDS: Multivitamin Tab GT SCH (08:22)
[2018-09-30] MEDS: Aspirin 81mg Chewable Tab GT SCH (08:22)
[2018-09-30] MEDS: Lactulose 10 Gm/15 mL 30mL UDC GT SCH ×2 (08:23→17:08)
[2018-09-30] MEDS: D5-0.45NS 1,000 ML IV SCH (10:37)
[2018-09-30] MEDS: Fleet Enema 135 mL RC SCH (11:19)
--- NOTE | 2018-09-30 18:38 | Internal Medicine Prog Note ---
Internal Medicine Subjective - Subjective Service Date: 09/30/18 Patient seen and examined:: with staff (SHE IS TOLERATING HER GT FEEDING.SHE HSD BM TODAY.) Patient is:: awake, in bed, confused Per staff patient has:: no adverse event Internal Medicine Objective - Results Result Diagrams: 09/29/18 06:41 09/28/18 05:50 Recent Labs: Laboratory Last Values WBC 8.0 Th/cmm (4.8-10.8) 09/29/18 06:41 RBC 3.89 Mil/cmm (3.80-5.20) 09/29/18 06:41 Hgb 11.0 gm/dL (12-16) L 09/29/18 06:41 Hct 33.8 % (41.0-60) L 09/29/18 06:41 MCV 87.0 fl (81-100) 09/29/18 06:41 MCH 28.3 pg (27.0-31.0) 09/29/18 06:41 MCHC Differential 32.5 pg (28.0-36.0) 09/29/18 06:41 RDW 14.4 % (11.5-20.0) 09/29/18 06:41 Plt Count 113 Th/cmm (150-400) L 09/29/18 06:41 MPV 11.8 fl 09/29/18 06:41 Add Manual Diff YES 09/29/18 06:41 Neutrophils % 81.6 % (40.0-80.0) H 09/25/18 22:02 Band Neutrophils % 0 % (0-10) 09/29/18 06:41 Lymphocytes % 9.0 % (20.0-50.0) L 09/25/18 22:02 Monocytes % 4.6 % (2.0-10.0) 09/25/18 22:02 Eosinophils % 4.7 % (0.0-5.0) 09/25/18 22:02 Basophils % 0.1 % (0.0-2.0) 09/25/18 22:02 Neutrophils (Manual) 74 % (40-80) 09/29/18 06:41 Lymphocytes 15 % (20-50) L 09/29/18 06:41 Monocytes 3 % (2-10) 09/29/18 06:41 Eosinophils 8 % (0-5) H 09/29/18 06:41 Basophils 0 % (0-3) 09/29/18 06:41 Platelet Estimate DECREASED PLATELETS (NORMAL) 09/29/18 06:41 Sodium 143 mEq/L (136-145) 09/28/18 05:50 Potassium 3.5 mEq/L (3.5-5.1) 09/28/18 05:50 Chloride 107 mEq/L (98-107) 09/28/18 05:50 Carbon Dioxide 28.6 mEq/L (21.0-31.0) 09/28/18 05:50 Anion Gap 10.9 (7.0-16.0) 09/28/18 05:50 BUN 32 mg/dL (7-25) H 09/28/18 05:50 Creatinine 1.1 mg/dL (0.6-1.2) 09/28/18 05:50 Est GFR ( Amer) TNP 09/28/18 05:50 Est GFR (Non-Af Amer) TNP 09/28/18 05:50 BUN/Creatinine Ratio 29.1 09/28/18 05:50 Glucose 182 mg/dL (70-105) H 09/28/18 05:50 POC Glucose 129 MG/DL (70 - 105) H 09/30/18 16:54 Calcium 8.7 mg/dL (8.6-10.3) 09/28/18 05:50 Magnesium 2.2 mg/dL (1.9-2.7) 09/27/18 04:50 Total Bilirubin 0.6 mg/dL (0.3-1.0) 09/28/18 05:50 AST 21 U/L (13-39) 09/28/18 05:50 ALT 18 U/L (7-52) 09/28/18 05:50 Alkaline Phosphatase 50 U/L (34-104) 09/28/18 05:50 Total Protein 5.7 gm/dL (6.0-8.3) L 09/28/18 05:50 Albumin 3.3 gm/dL (3.7-5.3) L 09/28/18 05:50 Globulin 2.4 gm/dL 09/28/18 05:50 Albumin/Globulin Ratio 1.4 (1.0-1.8) 09/28/18 05:50 Urine Source CLEAN C 09/26/18 00:00 Urine Color YELLOW 09/26/18 00:00 Urine Clarity CLEAR (CLEAR) 09/26/18 00:00 Urine pH 7.5 (4.6 - 8.0) 09/26/18 00:00 Ur Specific [place] 1.010 (1.005-1.030) 09/26/18 00:00 Urine Protein 30 mg/dL (NEGATIVE) H 09/26/18 00:00 Urine Glucose (UA) NEGATIVE mg/dL (NEGATIVE) 09/26/18 00:00 Urine Ketones NEGATIVE mg/dL (NEGATIVE) 09/26/18 00:00 Urine Blood NEGATIVE (NEGATIVE) 09/26/18 00:00 Urine Nitrate NEGATIVE (NEGATIVE) 09/26/18 00:00 Urine Bilirubin NEGATIVE (NEGATIVE) 09/26/18 00:00 Urine Urobilinogen 1.0 E.U./dL (0.2 - 1.0) 09/26/18 00:00 Ur Leukocyte Esterase NEGATIVE (NEGATIVE) 09/26/18 00:00 Urine RBC 0-2 /hpf (0-5) 09/26/18 00:00 Urine WBC 0-2 /hpf (0-5) 09/26/18 00:00 Ur Epithelial Cells OCCASIONAL /lpf (FEW) 09/26/18 00:00 Urine Bacteria NONE SEEN /hpf (NONE SEEN) 09/26/18 00:00 Hyaline Casts 0-2 /lpf (0-2) H 09/26/18 00:00 Fine Granular Casts 0-2 /lpf (NONE SEEN) H 09/26/18 00:00 - Physical Exam Vitals and I&O: Vital Signs Temp 97.2 F 09/30/18 16:00 Pulse 67 09/30/18 17:07 Resp 18 09/30/18 16:00 BP 138/65 09/30/18 17:07 Pulse Ox 98 09/30/18 16:00 Intake & Output 09/29/18 09/30/18 09/30/18 18:59 06:59 18:59 Intake Total 1461.25 1100 50 Output Total 800 300 Balance 661.25 800 50 Weight (lbs) 51.71 kg 51.71 kg Intake: Intake, IV Amount 861.25 1100 50 D5-0.45NS 1,000 ml @ 75 761.25 1000 mls/hr IV .[id number] [facility] Rx #:[id number] Piperacillin Sodium/ 100 100 50 Tazobact 2.25 gm In Sodium Chloride 0.9% 50 ml @ 100 mls/hr IV Q6H [facility] Rx#:[id number] Tube Feeding 600 Output: Urine 800 300 Other: # Bowel Movements 4 3 Stool Characteristics Soft Soft Soft Brown Brown Brown Weight Source Bedscale Bedscale Active Medications: Current Medications Acetaminophen (Tylenol 650mg/20.3ml Suspension) 650 mg GT Q6H PRN PRN Reason: Fever > 101 Stop: 11/27/18 19:38 Last Admin: 09/29/18 19:50 Dose: 650 mg Aspirin (Aspirin Chewable) 81 mg GT DAILY [facility] Stop: 11/26/18 08:59 Last Admin: 09/30/18 08:22 Dose: 81 mg Cholecalciferol (Vitamin D3) 2,000 iu GT DAILY [facility] Stop: 11/26/18 08:59 Last Admin: 09/30/18 08:22 Dose: 2,000 iu Docusate Sodium (Colace) 250 mg PO BID [facility] Stop: 11/26/18 08:59 Last Admin: 09/30/18 17:08 Dose: Not Given Donepezil HCl (Aricept) 10 mg GT HS [facility] Stop: 11/25/18 20:59 Last Admin: 09/29/18 20:00 Dose: 10 mg Glucagon (Glucagen) 1 mg IM UD PRN PRN Reason: HYPOGLYCEMIA Stop: 11/25/18 20:59 Hydralazine HCl (Apresoline) 25 mg GT Q8HR [facility] Stop: 11/25/18 20:59 Last Admin: 09/30/18 12:15 Dose: 25 mg Dextrose/Sodium Chloride (D5-0.45ns) 1,000 mls @ 75 mls/hr IV .[id number] [facility] Stop: 11/25/18 00:40 Last Admin: 09/30/18 10:37 Dose: 75 mls/hr Piperacillin Sod/Tazobactam (Sod 2.25 gm/ Sodium Chloride) 50 mls @ 100 mls/hr IV Q6H [facility] Stop: 11/27/18 19:59 Last Admin: 09/30/18 14:00 Dose: 100 mls/hr Insulin Human Lispro (Humalog Insulin Sliding Scale) 0 units SUBQ ACHS [facility]; Protocol Stop: 11/25/18 07:29 Last Admin: 09/30/18 17:01 Dose: Not Given Lactulose (Cephulac) 30 gm GT BID [facility] Stop: 11/25/18 08:59 Last Admin: 09/30/18 17:08 Dose: Not Given Lisinopril (Zestril) 20 mg GT BID [facility] Stop: 11/26/18 08:59 Last Admin: 09/30/18 17:07 Dose: 20 mg Metformin HCl (Glucophage) 500 mg GT DAILY [facility] Stop: 11/26/18 08:59 Last Admin: 09/30/18 08:22 Dose: 500 mg Multivitamins/Vitamin C (Theragran) 1 tab GT DAILY [facility] Stop: 11/26/18 08:59 Last Admin: 09/30/18 08:22 Dose: 1 tab Mupirocin (Bactroban Oint) 1 appl NS BID [facility] Stop: 10/02/18 09:01 Last Admin: 09/30/18 17:07 Dose: 1 appl Sodium Phosphate (Fleet Enema) 135 ml RC DAILY [facility] Stop: 11/26/18 08:59 Last Admin: 09/30/18 11:19 Dose: Not Given General: demented HEENT: NC/AT, PERRLA, EOMI, anicteric sclerae, throat clear Neck: Supple, No JVD, No thyromegaly, + JVD Lungs: CTAB Cardiovascular: RRR, Normal S1, Normal S2, without murmur Abdomen: soft, non-tender, distended Extremities: clear Neurological: no change Internal Medicine Assmt/Plan - Assessment Assessment: 1.ACUTE BOWEL OBSTRACTION. 2.SEVER CONSTIPATION. 3.DEMENTIA. 4.DM - Plan Plan: CBC AND CMP IN AM Nutritional Asmnt/Malnutr-PDOC - Dietary Evaluation Malnutrition Findings (Please click <Entered> for more info): Nutritional Asmnt/Malnutrition Start: 09/27/18 15: 55 Text: Status: Complete Freq: Protocol: Document 09/27/18 15:55 [email or web address] (Rec: 09/27/18 16:03 [email or web address]) Nutritional Asmnt/Malnutrition Patient General Information Nutritional Screening High Risk Diagnosis bowel obstruction with fecal impaction Pertinent Medical Hx/Surgical Hx DM, HTN, dementia Subjective Information Pt oriented to name, states no N/V however unable to obtain further hx as pt closed eyes and no longer responded to prompts. Glucerna 1.2 held at visit, order x 20 hours. RN reports tolerating TF without GRV. D5 1/2 NS @ 75 ml/hr upon visit. Current Diet Order/ Nutrition Support Glucerna 1.2 @ 60ml/hr x 20 hr = 1200ml, 1440kcal, 72g protein, 966ml H2O Patient / S.O Not Indicated Pertinent Medications vitamin D3, glucagon, metformin, Novolog, lactulose, Theragran, enema Pertinent Labs (09/27) K 3.2, BUN 38, Glu 234, BG POC 107-213 Nutritional Hx/Data Height 1.52 m Height (Calculated Centimeters) 152.4 Current Weight (lbs) 53.524 kg Weight (Calculated Kilograms) 53.5 Weight (Calculated Grams) 98666.9 [employer] Body Weight 100 lb Body Mass Index (BMI) 23.0 Weight Status Approriate GI Symptoms GI Symptoms None Last BM 09/27 Difficult in: Swallowing Skin Integrity/Comment: intact skinCarlos 13 Estimated Nutritional Goals BEE in Kcals: Using Current wt Calories/Kcals/Kg 25-30 Kcals Calculated 2004-0343 Protein: Using Current wt Protein g/k-1.2 Protein Calculated 64-65 Fluid: ml 3813-8324 Nutritional Problem 1. Problem Problem Altered nutrition related labs Etiology DM Signs/Symptoms: Glu 234, BG POC 107-213 Intervention/Recommendation Comments 1. Continue Glucerna 1.2 @ 60 ml/hr x 20 xdaxd=4556to, 1440kcal, 72g protein, 966ml free water (meets 100% kcal, 110% protein needs) 2. Consider 100ml Q6h water flush 3. Monitor TF rate, tolerance, wt, skin integrity and labs Expected Outcomes/Goals Expected Outcomes/Goals 1. Pt to meet at least 90% of nutritional needs via nutrition support with tolerance 2. Wt stability, skin to remain intact, labs to approach WNL. Shamika Pichardo RD
[2018-10-01] MEDS: D5-0.45NS 1,000 ML IV SCH (02:50)
[2018-10-01 05:02] LABS: % BASOPHILS 1.1 % (0.0-2.0); % EOSINOPHILS 10.6 % (0.0-5.0); % LYMPHOCYTES 13.8 % (20.0-50.0); % MONOCYTES 6.7 % (2.0-10.0); % NEUTROPHILS 67.8 % (40.0-80.0); BASOPHILE ABSOLUTE 0.1 Th/cumm (0-0.2); EOSINOPHILE ABSOLUTE 0.6 Th/cmm (0.1-0.4); HEMATOCRIT 29.9 % (41.0-60); HEMOGLOBIN 9.7 gm/dL (12-16); LYMPHOCYTE ABSOLUTE 0.8 Th/cmm (1.5-3.0); MEAN CORPUSCULAR HEMOGLOBIN 28.3 pg (27.0-31.0); MEAN CORPUSCULAR HGB CONC 32.5 pg (28.0-36.0); MONOCYTE ABSOLUTE 0.4 Th/cmm (0.3-1.0); NEUTROPHILE ABSOLUTE 3.8 Th/cmm (1.8-8.0); PLATELET COUNT 101 Th/cmm (150-400); RED BLOOD COUNT 3.44 Mil/cmm (3.80-5.20); RED CELL DISTRIBUTION WIDTH 13.7 % (11.5-20.0); WHITE BLOOD COUNT 5.7 Th/cmm (4.8-10.8)
[2018-10-01 06:02] LABS: ALB/GLOB RATIO 1.3 (1.0-1.8); ALBUMIN 2.8 gm/dL (3.7-5.3); ALKALINE PHOSPHATASE 55 U/L (34-104); ANION GAP 9.9 (7.0-16.0); BILIRUBIN,TOTAL 0.3 mg/dL (0.3-1.0); BUN - UREA NITROGEN 22 mg/dL (7-25); CALCIUM SERUM 8.2 mg/dL (8.6-10.3); CARBON DIOXIDE 27.7 mEq/L (21.0-31.0); CHLORIDE 107 mEq/L (98-107); CREATININE - SERUM 0.8 mg/dL (0.6-1.2); GLUCOSE 164 mg/dL (70-105); POTASSIUM SERUM 3.6 mEq/L (3.5-5.1); SGOT 17 U/L (13-39); SGPT/ALT 14 U/L (7-52); SODIUM SERUM 141 mEq/L (136-145)
[2018-10-01] MEDS: Lactulose 10 Gm/15 mL 30mL UDC GT SCH (08:35)
[2018-10-01] MEDS: Aspirin 81mg Chewable Tab GT SCH (08:36)
[2018-10-01] MEDS: Multivitamin Tab GT SCH (08:36)
[2018-10-01] MEDS: INSULIN LISPRO SLIDING SCALE 100 UNITS/ML UNIT SUBQ SCH ×2 (08:37→12:12)
[2018-10-01] MEDS: Fleet Enema 135 mL RC SCH (09:25)
== END 2018-10-01 15:43 | DRG 389 ==
LOC: ER 21:15 → MSI 23:50
PROVIDERS: ADMIT Family Medicine; ATTEND Family Medicine
DX: K56.609 Unspecified intestinal obstruction, unspecified as to partial versus complete obstruction (principal); M48.56XA Collapsed vertebra, not elsewhere classified, lumbar region, initial encounter for fracture; K59.00 Constipation, unspecified; E86.0 Dehydration; E11.9 Type 2 diabetes mellitus without complications; F03.90 Unspecified dementia, unspecified severity, without behavioral disturbance, psychotic disturbance, mood disturbance, and anxiety; I10 Essential (primary) hypertension; R13.10 Dysphagia, unspecified; Z93.1 Gastrostomy status
CPT/HCPCS: 36415-UA; 71045-TC; 80053-TC; 81001-TC; 82948-90; 83036-90; 83735-TC; 84132-TC; 85007-TC; 85025-TC; J1815; J2543; J3480; J7042; Z7610